=== PATIENT | female | born 1945 | race African-American/Black ===

== ENCOUNTER 2019-03-09 05:50 | Inpatient (IN) | payer MEDICARE ==
[~2019-03-09] VITALS: Ht 162.6 cm; Wt 116.6 kg
[~2019-03-09 05:50] MED LIST: ASPI-1393 PO; BENA40TA9 PO; BENAZEPRIL; GLIM4TAB2 PO; LASIX; LOVA40TA73 PO; METF-416 PO; METFORMIN
[2019-03-09] MEDS ORDERED: SODIUM CHLORIDE 0.9% 1,000 ML IV SCH (06:25)
[2019-03-09 06:48] LABS: HEMATOCRIT 32.5 % (36.0-48.0); HEMOGLOBIN 10.7 g/dL (12.0-16.0)
[2019-03-09] MEDS ORDERED: BUPIVACAINE HCL 0.5% (5MG/ML) 50ML ONE (06:53)
[2019-03-09] MEDS ORDERED: SKIN ADHESIVE 0.7 GM EA TOP ONE (06:53)
[2019-03-09] MEDS ORDERED: ROCURONIUM BROMIDE 10MG/ML VIAL 5ML IV ONE (07:20)
[2019-03-09] MEDS ORDERED: MIDAZOLAM HCL 2 MG/2 ML VIAL ONE (07:20)
[2019-03-09] MEDS ORDERED: PROPOFOL 200MG/20ML VIAL IV ONE (07:20)
[2019-03-09] MEDS ORDERED: FENTANYL CITRATE/PF 50MCG/ML 2ML VIAL ONE (07:20)
[2019-03-09] MEDS ORDERED: NEOSTIGMINE METHYLSULFATE 1MG/ML 10 ML VIAL ONE (07:20)
[2019-03-09] MEDS ORDERED: GLYCOPYRROLATE 0.2 MG/ML 2ML VIAL ONE ×3 (07:21→10:04)
[2019-03-09] MEDS ORDERED: ONDANSETRON HCL 4MG/2ML INJ ONE (07:52)
[2019-03-09] MEDS ORDERED: DEXAMETHASONE 4MG/ML 1ML VIAL ONE (07:52)
[2019-03-09] MEDS ORDERED: ONDANSETRON HCL 4MG/2ML INJ IV PRN ×2 (08:15→15:45)
[2019-03-09] MEDS ORDERED: LABETALOL 5MG/ML SYR 20 MG/4 ML SYRINGE IV PRN (08:15)
[2019-03-09] MEDS ORDERED: MEPERIDINE HCL/PF 25MG/ML CPJ IV PRN (08:15)
[2019-03-09] MEDS ORDERED: LORAZEPAM 2MG/ML CPJ IV NR (10:34)
[2019-03-09] MEDS: HYDROMORPHONE HCL/PF 2MG/ML CPJ IV PRN ×2 (10:41→11:31)
[2019-03-09 11:17] LABS: BG BASE EXCESS -6.3 mmol/L (-2.0-2.0); BG CARBOXYHEMOGLOBIN 0.3 % (0.5-1.5); BG DEOXYHEMOGLOBIN 4.3 % (0.0-5.0); BG FRACTION INSPIRED OXYGEN 45; BG HCO3 ACT 20.3 mmol/L (22.0-26.0); BG METHEMOGLOBIN 0.1 % (0.0-1.5); BG OXYGEN SATURATION 95.7 % (92.0-98.5); BG OXYHEMOGLOBIN 95.3 % (94.0-97.0); BG PCO2 44.9 mmHg (35.0-45.0); BG PH 7.274 (7.350-7.450); BG PO2 93.8 mmHg (75.0-100.0); BG PRESSURE SUPPORT 8; BG SAMPLE SITE RIGHT RADIAL; BG TOTAL HEMOGLOBIN 11.2 g/dL (12.0-18.0); BG VENT MODE VENT - CPAP
[2019-03-09] MEDS ORDERED: MORPHINE SULFATE 4 MG/ML CPJ (NOT FOR IM USE) IV PRN (15:45)
[2019-03-09] MEDS ORDERED: MORPHINE SULFATE 2 MG/ML CPJ (NOT FOR IM USE) IV PRN (15:45)
[2019-03-09] MEDS ORDERED: HYDROCODONE/ACETAMINOPHEN 5/325MG TABLET PO PRN (15:45)
[2019-03-09] MEDS ORDERED: ACETAMINOPHEN 325MG TABLET PO PRN (15:45)
[2019-03-09] MEDS ORDERED: HYDROCODONE/ACETAMINOPHEN 5/325MG TABLET ONE (18:46)
[2019-03-09 20:00] VITALS: BP 154/62
[2019-03-09] MEDS ORDERED: SODIUM CHLORIDE 0.9% INJ 3ML FLUSH IVF SCH (22:00)
[2019-03-09] MEDS ORDERED: DEXT 5%/0.45% NACL KCL 20MEQ/L 1,000 ML IV SCH (22:00)
[2019-03-09] MEDS: HYDROCODONE/ACETAMINOPHEN 5/325MG TABLET PO PRN (22:56)
[2019-03-10] VITALS: BP 121/48
[2019-03-10] MEDS: HYDROCODONE/ACETAMINOPHEN 5/325MG TABLET PO PRN (02:43)
[2019-03-10 04:00] VITALS: BP 128/55
[2019-03-10 08:00] VITALS: BP 138/70
[2019-03-10] MEDS ORDERED: DEXTROSE 50% WATER 50ML SYRINGE IV PRN ×3 (08:15)
[2019-03-10 09:46] VITALS: BP 138/70
[2019-03-10] MEDS ORDERED: MORPHINE SULFATE 2 MG/ML CPJ (NOT FOR IM USE) IV PRN (10:30)
[2019-03-10] MEDS ORDERED: MORPHINE SULFATE 4 MG/ML CPJ (NOT FOR IM USE) IV PRN (10:30)
[2019-03-10 12:00] VITALS: BP 147/70
[2019-03-10] MEDS ORDERED: BLOOD SUGAR DIAGNOSTIC STRIP TEST SCH ×2 (12:20)
[2019-03-10] MEDS ORDERED: INSULIN LISPRO 100 UNITS/ML SUBCUT SCH ×2 (12:50)
== END 2019-03-10 11:31 | disposition home or self-care (01) | DRG 336 ==
LOC: OR 05:50 → 6EST 20:00
PROVIDERS: ADMIT Surgery; ATTEND Surgery
PROC: 0WUF4JZ Supplement Abdominal Wall with Synthetic Substitute, Percutaneous Endoscopic Approach (ICD-10-PCS; principal; 2019-03-09)
PROC: 0DNW4ZZ Release Peritoneum, Percutaneous Endoscopic Approach (ICD-10-PCS; 2019-03-09)
PROC: 8E0W4CZ Robotic Assisted Procedure of Trunk Region, Percutaneous Endoscopic Approach (ICD-10-PCS; 2019-03-09)
DX: K43.2 Incisional hernia without obstruction or gangrene (principal); Z68.41 Body mass index [BMI] 40.0-44.9, adult; K66.0 Peritoneal adhesions (postprocedural) (postinfection); E66.01 Morbid (severe) obesity due to excess calories
CPT/HCPCS: 36415; 36600; 82375; 82805; 82962; 85014; 85018; 93005; 94002; C1781; J1100; J1170; J2250; J2270; J2405; J2704; J2710; J3010; J3490

== ENCOUNTER 2020-01-09 18:19 | Inpatient (IN) | payer MEDICARE ==
[~2020-01-09] VITALS: Ht 165.1 cm; Wt 125.2 kg
[~2020-01-09 18:19] MED LIST changes: -ASPI-1393 PO; +ASPI-1497 PO; -BENAZEPRIL; -GLIM4TAB2 PO; +GLIM4TAB36 PO; -METFORMIN
[2020-01-09] MEDS ORDERED: NITROGLYCERIN OINT 1GM/INCH UDPKT TD ONE (20:15)
[2020-01-09] MEDS ORDERED: FUROSEMIDE 40MG/4ML VIAL IV ONE (20:15)
[2020-01-09 20:24] LABS: CHLORIDE 99 mEq/L (98-107)
[2020-01-09 20:27] LABS: BASOPHILS % 0.6 % (0.0-2.0); EOSINOPHILS % 1.9 % (0.0-5.0); HEMATOCRIT. 42.3 % (36.0-48.0); MEAN CORPUSCULAR HEMOGLOBIN 30.2 pg (28.0-32.0); MEAN CORPUSCULAR VOLUME 91.7 fL (81.0-99.0); MEAN PLATELET VOLUME 9.1 fl (7.4-10.4); NEUTROPHILS % 53.5 % (40.0-76.0); PLATELET 337 x1000/uL (130-400); RED BLOOD CELL COUNT 4.62 mill/uL (4.2-5.4); RED CELL DISTRIBUTION WIDTH 15.1 % (11.6-14.6)
[2020-01-09 20:28] LABS: INR 1.1; PARTIAL THROMBOPLASTIN TIME 27.7 sec (23.4-31.0); PROTHROMBIN TIME 11.2 sec (9.6-11.0)
[2020-01-09] MEDS ORDERED: CLOPIDOGREL 75MG TABLET PO ONE (23:15)
[2020-01-09] MEDS ORDERED: CEFTRIAXONE 1 G PREMIX 50 ML IV ONE (23:15)
[2020-01-09] MEDS ORDERED: AZITHROMYCIN 500 MG in DEXT 5% WATER 250 ML IV ONE (23:15)
[2020-01-10] VITALS (7 sets, daily range): BP systolic 94–174; BP diastolic 51–91
[2020-01-10 00:05] LABS: CLARITY URINE CLEAR (CLEAR); COLOR URINE YELLOW (YELLOW); KETONES URINE NEGATIVE (NEGATIVE); LEUKOCYTE ESTERASE URINE TRACE (NEGATIVE); NITRITE URINE NEGATIVE (NEGATIVE); OCCULT BLOOD URINE NEGATIVE (NEGATIVE); PH URINE 5.5 (4.5-8.0); PROTEIN URINE 2+ (NEGATIVE); SPECIFIC GRAVITY URINE 1.011 (1.005-1.030); UROBILINOGEN URINE 0.2 E.U./dL (0.2-1.0)
[2020-01-10] MEDS ORDERED: ALLO300T2 PO (03:44)
[2020-01-10] MEDS ORDERED: VALS1TAB79 PO (03:44)
[2020-01-10] MEDS ORDERED: GLIM4TAB36 PO (03:44)
[2020-01-10] MEDS ORDERED: APIX5TAB PO (03:44)
[2020-01-10] MEDS ORDERED: LOVA20TA2 PO (03:44)
[2020-01-10] MEDS ORDERED: OLOP2.5D6 EACHEYE (03:44)
[2020-01-10] MEDS ORDERED: FURO80TA3 PO (03:44)
[2020-01-10] MEDS ORDERED: GLIP5TAB12 PO (03:44)
[2020-01-10] MEDS ORDERED: DEXTROSE 50% WATER 50ML SYRINGE IV PRN (04:00)
[2020-01-10] MEDS: BLOOD SUGAR DIAGNOSTIC STRIP TEST SCH ×4 (07:40→21:52)
[2020-01-10] MEDS: ALLOPURINOL 300 MG TABLET PO SCH ×2 (08:29→09:03)
[2020-01-10] MEDS: LOSARTAN POTASSIUM 100 MG TABLET PO SCH ×2 (08:29→09:03)
[2020-01-10] MEDS: APIXABAN 5 MG TABLET PO SCH ×3 (08:29→16:58)
[2020-01-10] MEDS ORDERED: ONDANSETRON HCL 4MG/2ML INJ IV PRN (08:30)
[2020-01-10] MEDS ORDERED: CLONIDINE 0.1MG TABLET PO PRN (08:30)
[2020-01-10 09:04] LABS: BASOPHILS % 0.6 % (0.0-2.0); HEMATOCRIT. 39.6 % (36.0-48.0); HEMOGLOBIN. 13.1 g/dL (12.0-16.0); LYMPHOCYTES % 31.9 % (20.0-50.0); MEAN CORPUSCULAR HEMOGLOBIN 30.5 pg (28.0-32.0); MEAN CORPUSCULAR VOLUME 92.5 fL (81.0-99.0); MEAN PLATELET VOLUME 8.4 fl (7.4-10.4); MONOCYTES % 6.1 % (2.0-8.0); NEUTROPHILS % 60.4 % (40.0-76.0); PLATELET 280 x1000/uL (130-400); RED BLOOD CELL COUNT 4.28 mill/uL (4.2-5.4); RED CELL DISTRIBUTION WIDTH 14.8 % (11.6-14.6)
[2020-01-10] MEDS: AMLODIPINE 10MG TABLET PO SCH (09:07)
[2020-01-10] MEDS: FUROSEMIDE 40MG/4ML VIAL IVP SCH (09:07)
[2020-01-10] MEDS: INSULIN LISPRO 100 UNITS/ML SUBCUT SCH ×4 (09:13→21:55)
[2020-01-10] MEDS: INSULIN GLARGINE UD 100 UNITS/ML SYR SUBCUT SCH ×2 (09:15→21:56)
[2020-01-10] MEDS: ACETAMINOPHEN 325MG TABLET PO PRN (15:34)
[2020-01-10] MEDS ORDERED: ATORVASTATIN CALCIUM 40MG TABLET PO SCH (21:00)
[2020-01-10] MEDS ORDERED: AZITHROMYCIN 500 MG in DEXT 5% WATER 250 ML IV SCH (21:00)
[2020-01-11] VITALS: BP 132/68
[2020-01-11] MEDS: ACETAMINOPHEN 325MG TABLET PO PRN ×4 (00:50→20:16)
[2020-01-11 04:00] VITALS: BP 121/64
[2020-01-11] MEDS: BLOOD SUGAR DIAGNOSTIC STRIP TEST SCH ×4 (06:22→20:23)
[2020-01-11 07:54] LABS: BASOPHILS % 0.4 % (0.0-2.0); EOSINOPHILS % 1.7 % (0.0-5.0); HEMATOCRIT. 42.1 % (36.0-48.0); HEMOGLOBIN. 13.9 g/dL (12.0-16.0); LYMPHOCYTES % 42.3 % (20.0-50.0); MEAN CORPUSCULAR HEMOGLOBIN 30.3 pg (28.0-32.0); MEAN CORPUSCULAR VOLUME 91.7 fL (81.0-99.0); MEAN PLATELET VOLUME 8.7 fl (7.4-10.4); MONOCYTES % 6.4 % (2.0-8.0); NEUTROPHILS % 49.2 % (40.0-76.0); PLATELET 298 x1000/uL (130-400); RED BLOOD CELL COUNT 4.59 mill/uL (4.2-5.4); RED CELL DISTRIBUTION WIDTH 15.2 % (11.6-14.6)
[2020-01-11 08:00] VITALS: BP 138/80
[2020-01-11] MEDS: LOSARTAN POTASSIUM 100 MG TABLET PO SCH (08:53)
[2020-01-11] MEDS: APIXABAN 5 MG TABLET PO SCH ×2 (08:53→17:39)
[2020-01-11] MEDS: ALLOPURINOL 300 MG TABLET PO SCH (08:53)
[2020-01-11] MEDS: AMLODIPINE 10MG TABLET PO SCH (08:54)
[2020-01-11] MEDS: FUROSEMIDE 40MG/4ML VIAL IVP SCH (08:54)
[2020-01-11] MEDS: INSULIN LISPRO 100 UNITS/ML SUBCUT SCH ×4 (08:58→20:30)
[2020-01-11] MEDS: INSULIN GLARGINE UD 100 UNITS/ML SYR SUBCUT SCH ×2 (08:59→22:17)
[2020-01-11 11:33] VITALS: BP_SYST 88; BP_SYST 99; BP_DIAS 44; BP_DIAS 49; BP_DIAS 54
[2020-01-11 11:36] LABS: T4 FREE 1.15 ng/dL (0.76-1.46)
[2020-01-11 15:30] VITALS: BP 138/60
[2020-01-11] MEDS ORDERED: SODIUM CHLORIDE 0.9% 1,000 ML IV SCH (17:15)
[2020-01-11 20:00] VITALS: BP 106/52
[2020-01-11] MEDS ORDERED: HYDROCODONE/ACETAMINOPHEN 5/325MG TABLET PO PRN (20:00)
[2020-01-11] MEDS ORDERED: FAMOTIDINE 20MG TABLET PO SCH (21:00)
[2020-01-11] MEDS ORDERED: ATORVASTATIN CALCIUM 10MG TABLET PO SCH (21:00)
[2020-01-11 23:44] LABS: CREATINE KINASE 178 IU/L (26-192); CREATINE KINASE MB FRACTION 2.2 ng/mL (0.5-3.6)
[2020-01-12] VITALS: BP 128/67
[2020-01-12 08:00] VITALS: BP 132/64
[2020-01-12] MEDS ORDERED: AMLODIPINE 5MG TABLET PO SCH (09:00)
[2020-01-12] MEDS: APIXABAN 5 MG TABLET PO SCH (09:02)
[2020-01-12] MEDS: ALLOPURINOL 300 MG TABLET PO SCH (09:02)
[2020-01-12] MEDS: INSULIN LISPRO 100 UNITS/ML SUBCUT SCH ×2 (09:06→12:14)
[2020-01-12 09:35] LABS: BASOPHILS % 0.5 % (0.0-2.0); EOSINOPHILS % 1.5 % (0.0-5.0); HEMATOCRIT. 41.2 % (36.0-48.0); HEMOGLOBIN. 13.5 g/dL (12.0-16.0); LYMPHOCYTES % 42.7 % (20.0-50.0); MEAN CORPUSCULAR HEMOGLOBIN 30.1 pg (28.0-32.0); MEAN CORPUSCULAR VOLUME 91.6 fL (81.0-99.0); MEAN PLATELET VOLUME 8.6 fl (7.4-10.4); MONOCYTES % 5.6 % (2.0-8.0); NEUTROPHILS % 49.7 % (40.0-76.0); PLATELET 318 x1000/uL (130-400); RED CELL DISTRIBUTION WIDTH 15.1 % (11.6-14.6)
[2020-01-12 09:36] LABS: CHLORIDE 101 mEq/L (98-107)
[2020-01-12 09:42] LABS: PHOSPHORUS 4.3 mg/dL (2.5-4.9)
[2020-01-12] MEDS: INSULIN GLARGINE UD 100 UNITS/ML SYR SUBCUT SCH (10:00)
[2020-01-12] MEDS ORDERED: GABAPENTIN 100MG CAPSULE PO SCH (12:00)
[2020-01-12] MEDS: BLOOD SUGAR DIAGNOSTIC STRIP TEST SCH (12:03)
[2020-01-12] MEDS ORDERED: BLOO1KIT74 TP (14:48)
[2020-01-12] MEDS ORDERED: FLAS1EAC2 TP (14:48)
[2020-01-12] MEDS ORDERED: LANC1COM2 MC (14:48)
[2020-01-12] MEDS ORDERED: GABA-529 PO (14:48)
[2020-01-12] MEDS ORDERED: AMLO5TAB4 MT (14:48)
[2020-01-12] MEDS ORDERED: INSU100I28 SQ (14:48)
[2020-01-12 17:37] VITALS: BP 122/78
== END 2020-01-12 18:25 | disposition home health service (06) | DRG 73 ==
LOC: ER 18:19 → MERGE 23:42 → 7WST 23:42 → ENRESERV 01-10 00:35 → 6WST 01-10 15:57
PROVIDERS: ADMIT Internal Medicine; ATTEND Internal Medicine
DX: G90.8 Other disorders of autonomic nervous system (principal); I50.33 Acute on chronic diastolic (congestive) heart failure; N17.9 Acute kidney failure, unspecified; E87.2 Acidosis; I13.0 Hypertensive heart and chronic kidney disease with heart failure and stage 1 through stage 4 chronic kidney disease, or unspecified chronic kidney disease; N39.0 Urinary tract infection, site not specified; Z68.42 Body mass index [BMI] 45.0-49.9, adult; E66.9 Obesity, unspecified; E78.5 Hyperlipidemia, unspecified; N18.9 Chronic kidney disease, unspecified; E11.22 Type 2 diabetes mellitus with diabetic chronic kidney disease; E11.41 Type 2 diabetes mellitus with diabetic mononeuropathy; G57.90 Unspecified mononeuropathy of unspecified lower limb; E83.52 Hypercalcemia; Z20.828 Contact with and (suspected) exposure to other viral communicable diseases; E78.00 Pure hypercholesterolemia, unspecified; M10.9 Gout, unspecified; Z79.01 Long term (current) use of anticoagulants; Z88.8 Allergy status to other drugs, medicaments and biological substances; Z86.711 Personal history of pulmonary embolism; Z79.899 Other long term (current) drug therapy; Z17.1 Estrogen receptor negative status [ER-]; Z79.4 Long term (current) use of insulin; Z86.718 Personal history of other venous thrombosis and embolism; Z88.6 Allergy status to analgesic agent; Z90.49 Acquired absence of other specified parts of digestive tract; Z90.710 Acquired absence of both cervix and uterus; Z95.828 Presence of other vascular implants and grafts
CPT/HCPCS: 36415; 71045; 76770; 80048; 80053; 80061; 81003; 82550; 82553; 82962; 83036; 83605; 83735; 83880; 84100; 84145; 84439; 84443; 84484; 84550; 85025; 85379; 87426; 93005; 93306; 93880; 93970; 97110; 97116; 97162; 99291; J0456; J0696; J1815; J1940; J2405; J7030; J7060

== ENCOUNTER 2021-02-27 19:15 | Emergency (ER) | payer MEDICARE ==
[~2021-02-27] VITALS: Ht 162.6 cm; Wt 105.0 kg
[~2021-02-27 19:15] MED LIST changes: +ALLO300T2 PO; +AMLO5TAB4 MT; +APIX5TAB PO; +BLOO1KIT74 TP; +FLAS1EAC2 TP; +GABA-529 PO; +INSU100I28 SQ; +LANC1COM2 MC; +LOVA20TA2 PO; +OLOP2.5D15 EACHEYE
[2021-02-27] MEDS ORDERED: OXYMETAZOLINE HCL NASAL SPRAY 15ML BOTHNSTRLS STA (19:47)
[2021-02-27 20:18] LABS: BASOPHILS % 0.7 % (0.0-2.0); EOSINOPHILS % 1.8 % (0.0-5.0); HEMOGLOBIN. 11.6 g/dL (12.0-16.0); LYMPHOCYTES % 42.1 % (20.0-50.0); MEAN CORPUSCULAR HEMOGLOBIN 30.4 pg (28.0-32.0); MEAN CORPUSCULAR VOLUME 91.9 fL (81.0-99.0); MEAN PLATELET VOLUME 8.7 fl (7.4-10.4); MONOCYTES % 6.8 % (2.0-8.0); NEUTROPHILS % 48.6 % (40.0-76.0); PLATELET 328 x1000/uL (130-400); RED CELL DISTRIBUTION WIDTH 14.8 % (11.6-14.6)
[2021-02-27 20:24] LABS: CHLORIDE 105 mEq/L (98-107)
[2021-02-27 20:28] LABS: PROTHROMBIN TIME 10.4 sec (9.6-11.0)
[2021-02-27] MEDS ORDERED: OXYM30SP26 BOTHNSTRLS (21:01)
[2021-02-27 21:45] VITALS: BP 173/82
== END 2021-02-27 21:57 | disposition home or self-care (01) ==
LOC: ER 19:15
DX: R04.0 Epistaxis (principal); N28.9 Disorder of kidney and ureter, unspecified; D64.9 Anemia, unspecified; E11.9 Type 2 diabetes mellitus without complications; I10 Essential (primary) hypertension; Z79.01 Long term (current) use of anticoagulants; Z88.6 Allergy status to analgesic agent; Z88.8 Allergy status to other drugs, medicaments and biological substances; Z79.899 Other long term (current) drug therapy; Z79.82 Long term (current) use of aspirin; Z86.718 Personal history of other venous thrombosis and embolism
CPT/HCPCS: 36415; 80053; 85025; 99283